=== PATIENT | male | born 1960 | race Caucasian/White ===

== ENCOUNTER → 2017-12-21 08:17 | Outpatient (CLI) | payer BC, SELFPAY ==
[2017-12-23 06:41] LABS: H. pylori Breath Test Negative (Negative)
== END ==
PROVIDERS: Nurse Practitioner Family; PCP Emergency Medicine; Visit Provider Emergency Medicine
DX: R11.0 Nausea (principal)
CPT/HCPCS: 83013

== ENCOUNTER → 2018-01-18 14:10 | Outpatient (POV) | payer BC, SELFPAY | PROVIDERS: Visit Provider Nurse Practitioner Acute Care | DX: Z00.00 Encounter for general adult medical examination without abnormal findings (principal) ==

== ENCOUNTER → 2019-11-30 15:11 | Outpatient (CLI) | payer BC, SELFPAY ==
[2019-11-30 15:41] LABS: Basophils % 0.4 % (0.1-2.0); Eosinophils # 0.1 K/mm3 (0.0-0.4); Eosinophils % 1.7 % (0.1-12.0); Hematocrit 45.9 % (42.0-52.0); Hemoglobin 14.8 g/dL (14.1-18.0); Lymphocytes # 1.5 K/mm3 (0.7-4.5); Lymphocytes % 20.2 % (10-50); Mean Corpuscular HGB Conc 32.2 g/dL (31.8-35.4); Mean Corpuscular Hemoglobin 29.6 pg (27.0-31.2); Mean Corpuscular Volume 91.8 fl (80-94); Mean Platelet Volume 10.2 fl (7.4-10.4); Monocytes # 0.6 K/mm3 (0.1-1.0); Monocytes % 7.8 % (1.7-9.3); Neutrophils # 5.1 K/mm3 (1.8-7.8); Platelet Count 195 K/mm3 (142-424); White Blood Count 7.3 K/mm3 (4.8-10.8)
[2019-11-30 16:40] LABS: Alanine Aminotransferase 25 U/L (12-78); Albumin/Globulin Ratio 1.1 (1.1-1.8); Alkaline Phosphatase 71 U/L (46-116); Anion Gap 16.1 mEq/L (5-15); Aspartate Amino Transferase 18 U/L (15-37); Bilirubin,Total 0.7 mg/dL (0.2-1.0); Blood Urea Nitrogen 16 mg/dL (7-18); Calcium 9.2 mg/dL (8.5-10.1); Carbon Dioxide 26 mmol/L (21.0-32.0); Chloride 104 mmol/L (98-107); Chol/HDL Ratio 5.5 (1-3.5); Cholesterol 209 mg/dL (140-200); Creatinine,Serum 1.02 mg/dL (0.70-1.30); Estimated Glomerular Filt Rate 75 ml/min (>60); Free T4 (Free Thyroxine) 1.13 ng/dl (0.76-1.46); GFR (African American) 91 ML/MIN (>60); Globulin 3.7 gm/dl (1.3-3.2); Glucose 95 mg/dL (74-106); HDL Cholesterol 38 mg/dL (27-67); LDL Cholesterol 133 mg/dL (0-130); Potassium 4.1 mmoL/L (3.5-5.1); Sodium 142 mmol/L (136-145); Thyroid Stimulating Hormone 0.56 uIU/ml (0.358-3.740); Total Protein,Serum 7.7 gm/dL (6.4-8.2); Triglycerides 191 mg/dL (30-200); VLDL Cholesterol 38 mg/dL (0-40)
[2019-12-02 11:27] LABS: PSA, Free 0.08 ng/mL; Prostate Specific Ag 0.7 ng/mL (0.0-4.0); Vitamin D 25 Hydroxy 26.7 ng/mL (30.0-100.0)
[2019-12-02 11:43] LABS: Hep A Ab, IgM Negative (Negative); Hepatitis B Core Antibody IgM Negative (Negative); Hepatitis B Surface Antigen Negative (Negative)
[2019-12-02 16:20] LABS: Hepatitis C Antibody 0.1 s/co ratio (0.0-0.9)
== END ==
PROVIDERS: Visit Provider Emergency Medicine
DX: K21.9 Gastro-esophageal reflux disease without esophagitis (principal); I10 Essential (primary) hypertension; E55.9 Vitamin D deficiency, unspecified
CPT/HCPCS: 80053; 80061; 80074; 82652; 84153; 84154; 84439; 84443; 85025

== ENCOUNTER → 2021-06-18 15:21 | Outpatient (CLI) | payer BC, SELFPAY ==
[2021-06-18 16:02] LABS: Basophils % 0.4 % (0.1-2.0); Eosinophils # 0.2 K/mm3 (0.0-0.4); Eosinophils % 2.2 % (0.1-12.0); Hematocrit 44.7 % (42.0-52.0); Hemoglobin 14.8 g/dL (14.1-18.0); Lymphocytes # 1.8 K/mm3 (0.7-4.5); Lymphocytes % 19.6 % (10-50); Mean Corpuscular HGB Conc 33.1 g/dL (31.8-35.4); Mean Corpuscular Hemoglobin 29.8 pg (27.0-31.2); Mean Corpuscular Volume 90.1 fl (80-94); Mean Platelet Volume 11.4 fl (7.4-10.4); Monocytes # 0.5 K/mm3 (0.1-1.0); Monocytes % 5.3 % (1.7-9.3); Neutrophils # 6.5 K/mm3 (1.8-7.8); Neutrophils % 72.4 % (37.0-80.0); Platelet Count 211 K/mm3 (142-424); Red Blood Count 4.96 M/mm3 (4.60-6.20); Red Cell Distribution Width 14.8 % (11.5-17.5)
[2021-06-18 16:12] LABS: Alanine Aminotransferase 26 U/L (12-78); Albumin Level 4.3 g/dl (3.5-5.0); Albumin/Globulin Ratio 1.4 (1.1-1.8); Alkaline Phosphatase 84 U/L (38-126); Anion Gap 15.2 mEq/L (5-15); Aspartate Amino Transferase 27 U/L (17-59); Bilirubin,Total 0.5 mg/dl (0.2-1.3); Blood Urea Nitrogen 18 mg/dl (9-20); Carbon Dioxide 21 mmol/L (22.0-30.0); Chloride 108 mmol/L (98-107); Chol/HDL Ratio 3.1 (1-3.5); Cholesterol 140 mg/dl (140-200); Estimated Glomerular Filt Rate 86 ml/min (>60); GFR (African American) 105 ML/MIN (>60); Glucose 123 mg/dl (74-100); HDL Cholesterol 45 mg/dl (40-60); Potassium 4.2 mmoL/L (3.5-5.1); Sodium 140 mmol/L (136-145); Total Protein,Serum 7.3 g/dl (6.3-8.2); Triglycerides 197 mg/dl (30-150); Uric Acid 5.8 mg/dl (3.5-8.5); VLDL Cholesterol 39 mg/dL (0-40)
[2021-06-18 16:23] LABS: Direct LDL Cholesterol 54.66 mg/dL (100-129)
[2021-06-18 16:29] LABS: Free T4 (Free Thyroxine) 1.38 ng/dl (0.78-2.19)
[2021-06-18 16:30] LABS: 25-OH Vitamin D, Total 29.8 ng/mL (30-100)
[2021-06-18 16:43] LABS: Prostate Specific Ag Screen 0.8 ng/ml (0.0-4.0); Thyroid Stimulating Hormone 0.79 uIU/mL (0.465-4.68)
== END ==
PROVIDERS: Visit Provider Emergency Medicine
DX: E78.5 Hyperlipidemia, unspecified (principal); E55.9 Vitamin D deficiency, unspecified; M10.9 Gout, unspecified; E66.9 Obesity, unspecified; Z68.34 Body mass index [BMI] 34.0-34.9, adult
CPT/HCPCS: 80053; 80061; 82306; 84439; 84443; 84550; 85025; G0103

== ENCOUNTER → 2021-07-01 07:47 | Outpatient (CLI) | payer BC, SELFPAY ==
--- NOTE | 2021-07-01 07:53 | US_ITS ---
PROCEDURE: US GALLBLADDER CLINICAL INDICATION: abdominal pain COMPARISON: No exams were available for comparison FINDINGS: Pancreas: Unremarkable Liver: Small hyperechoic focus is present in the left lobe of the liver at 1 cm and could be due to small hemangioma. There is appropriate direction of blood flow within a non dilated portal vein. Right kidney: Unremarkable appearing. No hydronephrosis. Gallbladder: No stones are evident. There is no gallbladder wall thickening. Common duct is normal in diameter. IMPRESSION: Unremarkable gallbladder ultrasound. Small hyperechoic focus of the liver which may be due to small hemangioma Dictated by: Fernando Miranda MD 07/01/2021 11:47 Fernando Miranda MD in [place] 07/01/2021 11:47
== END ==
PROVIDERS: PCP Emergency Medicine; Visit Provider Emergency Medicine
DX: R10.9 Unspecified abdominal pain (principal)
CPT/HCPCS: 76705

== ENCOUNTER → 2021-07-26 06:53 | Outpatient (CLI) | payer BC, SELFPAY ==
--- NOTE | 2021-07-26 06:59 | NM_ITS ---
PROCEDURE: NM HEPATOBILIARY W PHARM CLINICAL INDICATION: Abdominal Pain COMPARISON: No exams were available for comparison TECHNIQUE: DOSE: 4.88 mCi technetium Choletec Fatty meal with Ensure FINDINGS: Homogeneous activity is present within the hepatic parenchyma. Activity is present in the gallbladder by 10 minutes. Activity is present in the small bowel by 45 minutes. The gallbladder ejection fraction is calculated to be 48 percent. No pain reported with fatty meal. IMPRESSION: Unremarkable hepatobiliary scan with normal gallbladder ejection fraction Dictated by: Fernando Miranda MD 07/26/2021 12:54 Fernando Miranda MD in [facility] 07/26/2021 12:54
== END ==
PROVIDERS: PCP Emergency Medicine; Visit Provider Emergency Medicine
DX: R10.9 Unspecified abdominal pain (principal)
CPT/HCPCS: 78227; A9537

== ENCOUNTER → 2022-08-27 13:52 | Outpatient (CLI) | payer BC, SELFPAY ==
[2022-08-27 16:53] LABS: Coronavirus 19, PCR Not Detected (NotDetected); Influenza A, PCR Not Detected (NotDetected)
[2022-08-27 23:34] LABS: Influenza B, PCR Detected (NotDetected)
== END ==
PROVIDERS: PCP Emergency Medicine; Visit Provider Emergency Medicine
DX: J02.9 Acute pharyngitis, unspecified (principal); J10.1 Influenza due to other identified influenza virus with other respiratory manifestations
CPT/HCPCS: C9803; U0003; U0005

== ENCOUNTER 2025-01-03 21:28 | Outpatient (CLI) | payer BC, SELFPAY ==
[2025-01-03 22:06] LABS: Basophils % 0.5 % (0.1-2.0); Eosinophils # 0.2 K/mm3 (0.0-0.4); Eosinophils % 2.1 % (0.1-12.0); Hematocrit 45.5 % (42.0-52.0); Hemoglobin 14.5 g/dL (14.1-18.0); Lymphocytes # 1.6 K/mm3 (0.7-4.5); Lymphocytes % 19.9 % (10-50); Mean Corpuscular HGB Conc 31.9 g/dL (31.8-35.4); Mean Corpuscular Hemoglobin 29.2 pg (27.0-31.2); Mean Corpuscular Volume 91.5 fl (80-94); Mean Platelet Volume 11.7 fl (7.4-10.4); Monocytes # 0.5 K/mm3 (0.1-1.0); Monocytes % 6.6 % (1.7-9.3); Neutrophils # 5.7 K/mm3 (1.8-7.8); Neutrophils % 70.6 % (37.0-80.0); Platelet Count 239 K/mm3 (142-424); Red Blood Count 4.97 M/mm3 (4.60-6.20); Red Cell Distribution Width 14.8 % (11.5-17.5)
[2025-01-03 22:57] LABS: Alanine Aminotransferase 26 U/L (12-78); Albumin Level 4.8 g/dl (3.5-5.0); Albumin/Globulin Ratio 1.7 (1.1-1.8); Alkaline Phosphatase 83 U/L (38-126); Anion Gap 15.4 mEq/L (5-15); Aspartate Amino Transferase 26 U/L (17-59); Bilirubin,Total 0.7 mg/dl (0.2-1.3); Blood Urea Nitrogen 14 mg/dl (9-20); Calcium 9.7 mg/dl (8.4-10.2); Carbon Dioxide 24 mmol/L (22.0-30.0); Chloride 105 mmol/L (98-107); Chol/HDL Ratio 2.8 (1-3.5); Cholesterol 124 mg/dl (140-200); Estimated Glomerular Filt Rate 98 ml/min (>60); GFR (African American) 118 ML/MIN (>60); Globulin 2.9 g/dL (1.3-3.2); Glucose 92 mg/dl (74-100); HDL Cholesterol 45 mg/dl (40-60); Potassium 4.4 mmoL/L (3.5-5.1); Sodium 140 mmol/L (136-145); Total Protein,Serum 7.7 g/dl (6.3-8.2); Triglycerides 163 mg/dl (30-150); VLDL Cholesterol 33 mg/dL (0-40)
[2025-01-03 23:08] LABS: Direct LDL Cholesterol 42.82 mg/dL (100-129)
[2025-01-03 23:13] LABS: 25-OH Vitamin D, Total 29.3 ng/mL (30-100)
[2025-01-03 23:28] LABS: Thyroid Stimulating Hormone 0.99 uIU/mL (0.465-4.68)
== END 2025-01-03 23:59 | disposition home or self-care (01) ==
LOC: LAB 21:29
PROVIDERS: PCP Nurse Practitioner Family; Visit Provider Nurse Practitioner Family
DX: E55.9 Vitamin D deficiency, unspecified (principal); M10.9 Gout, unspecified; E78.5 Hyperlipidemia, unspecified; K21.9 Gastro-esophageal reflux disease without esophagitis; E66.811 Obesity, class 1; Z68.33 Body mass index [BMI] 33.0-33.9, adult
CPT/HCPCS: 80053; 80061; 82306; 84443; 85025; G0103

== ENCOUNTER 2025-01-13 12:38 | Outpatient (CLI) | payer BC, SELFPAY ==
--- NOTE | 2025-01-13 12:42 | CA_ITS ---
APPROVED REPORT EXAM: Comprehensive 2D, Doppler, and color-flow Echocardiogram Immigration Coordinator: ELAN Moore, RVS Ht: 5 ft 9 in Wt: 118lbs BSA: 1.65 BP: 118/76 mmHg Indications: NICHOLS, HLD, Murmur 2D Dimensions Left Atrium 4.07 cm LA Volume 60.00 mL LA Volume Index 35.50 mL/m2 (M/F) 16-34 M-Mode Dimensions RVDd 2.10 cm (0.9-2.6) LA Diam 4.42 cm (1.9-4.0) LVDd 4.84 cm (3.5-5.7) LVDs 2.75 cm (3.5-5.7) IVSd 1.26 cm (0.6-1.1) PWd 1.07 cm (0.6-1.1) EF (Teich) 72.60% EPSs 0.27 cm FS 41.70% EDV (Teich) 103.40 mL TAPSE 2.34 (<1.7) ESV (Teich) 28.30 mL LV Diastology MED A' 14.30 cm/s LAT A' 12.70 cm/s Aortic Valve GEREMIAS Index 1.82 cm2/m2 AoV Peak Amadeo. 107.0 (50-130 cm/s) AO Peak GR. 4.60 mmHg AO Mean GR. 2.30 (<5 mmHg) AO VTI 20.6 (18-25 cm) GEREMIAS (VTI) 3.08 (2.5-4.5 cm2) Pulmonary Valve PV Peak Velocity 96.0 (50-150 cm/s) Left Ventricle The left ventricle is normal size. The left ventricular systolic function is normal. The left ventricular ejection fraction is within the normal range. There is normal left ventricular wall thickness. There is normal LV segmental wall motion. The left ventricular diastolic function is normal. LVEF is 55%. Right Ventricle The right ventricle is normal size. The right ventricular systolic function is normal. Atria The left atrium size is normal. The right atrium size is normal. There is no Doppler evidence of interatrial shunt. Aortic Valve The aortic valve opens well. There is no aortic valvular stenosis. Aorta regurgitation. Mitral Valve The mitral valve is normal in structure. No evidence of mitral valve stenosis. Trace mitral regurgitation. Tricuspid Valve Tricuspid valve is grossly normal in structure and function. Trace tricuspid regurgitation. There is insufficient TR jet to estimate RVSP. Pulmonic Valve The pulmonary valve is normal in structure. Trace pulmonic regurgitation. Great Vessels The aortic root is normal in size. IVC is normal in size and collapses >50% with inspiration. Pericardium There is no pericardial effusion. Other Information Study Quality: Fair Conclusion Normal biventricular systolic function. No significant valvular stenosis or regurgitation. Electronically signed by : Sunitha Mack MD 01/22/2025 21:35:38
== END 2025-01-13 23:59 | disposition home or self-care (01) ==
LOC: RT 12:39
PROVIDERS: PCP Nurse Practitioner Family; Visit Provider Nurse Practitioner Family
DX: R06.09 Other forms of dyspnea (principal); R01.1 Cardiac murmur, unspecified
CPT/HCPCS: 93306

== ENCOUNTER 2025-05-08 06:01 | Day surgery (SDC) | payer BC, SELFPAY ==
[2025-05-02 11:44] VITALS: BMI 33.4
[2025-05-08 06:17] VITALS: BP 130/91; PULSE 89; RESP 16; TEMP 36.2; O2SAT 100
[2025-05-08] MEDS: LACTATED RINGERS 1000ML 1,000 ML 50 ML IV (06:23)
--- NOTE | 2025-05-08 07:12 | EXP.ANES.CKL ---
[facility] Disclaimer: The information contained in this section may have been updated after the patient was seen, as this information can be updated by other users. Medical History Colon cancer screening Excessive cerumen in right ear canal Hearing loss Arthritis Surgical History History of hip replacement Family History Father Cancer Social History Smoking Status: Never smoker alcohol intake: never substance use type: denies use current occupational status: employed Travel in the last 8 weeks?: None household members: family housing: house Have you lived/traveled outside US in past 30 days?: No Contact w/someone who lives/traveled outside US past 30 days?: No Exposure to someone with infectious disease in past 14 days?: No Do you have a fever (greater than 100.4 F or 38 C)?: No Have you tested positive for COVID-19?: No Exposed to someone with COVID-19 in past 14 days?: No Do you have a sore throat?: No Do you have a cough?: No Do you have any weakness?: No Do you have any diarrhea?: No Are you experiencing any unusual bleeding?: No Do you have any muscle aches/pain?: No Do you have any abdominal pain?: No Are you experiencing loss of taste or smell?: No [facility] Anesthesia Checklist Patient Identification Patient Identification: Arm Band and Verbal (Name & ) Structural Data Admitted From: Home Planned Operative Procedure/s: EGD Colonscopy Consent for Planned Operative Procedure(s) Verified: Yes Verified Documents: Surgical Consent and History and Physical NPO Status Verified Time NPO: 00:00 Additional verifications Patient : No Anesthesia Reactions: No Airway Assessment Mallampati Score:: Class III Dentition: Good Dentition Neurological Assessment Level of Consciousness: Awake, Alert and Appropriate Hx Seizures: No Anesthesia Plan Anesthesia Risk discussed: Yes Anesthesia Plan: Verified ASA Class: II Anesthesia Type: MAC
--- NOTE | 2025-05-08 07:28 | EXP.HP ---
History of Present Illness *Admission Date: 05/08/25 *Reason for visit:: Screening for colon cancer *History of present illness: Mr. Phillips is a 64-year-old gentleman who is here for screening colonoscopy. His last colonoscopy was over 10 years ago ([facility]) and he had no polyps. The examination is deemed medically necessary for screening colonoscopy. The patient has been seen, interviewed and examined prior to the procedure by both myself and the anesthesia provider. [facility] Disclaimer: The information contained in this section may have been updated after the patient was seen, as this information can be updated by other users. Medical History Colon cancer screening Excessive cerumen in right ear canal Hearing loss Arthritis Surgical History History of hip replacement Family History Father Cancer Social History Smoking Status: Never smoker alcohol intake: never substance use type: denies use current occupational status: employed Travel in the last 8 weeks?: None household members: family housing: house Have you lived/traveled outside US in past 30 days?: No Contact w/someone who lives/traveled outside US past 30 days?: No Exposure to someone with infectious disease in past 14 days?: No Do you have a fever (greater than 100.4 F or 38 C)?: No Have you tested positive for COVID-19?: No Exposed to someone with COVID-19 in past 14 days?: No Do you have a sore throat?: No Do you have a cough?: No Do you have any weakness?: No Do you have any diarrhea?: No Are you experiencing any unusual bleeding?: No Do you have any muscle aches/pain?: No Do you have any abdominal pain?: No Are you experiencing loss of taste or smell?: No Other Medical History Have you received the Flu Vaccine for this season: No Have you received the Pneumonia Vaccine: No Review of Systems Review of Systems Review of systems (narrative): Negative *Cardiovascular Comments: Negative *Gastrointestinal Comments: Negative *Genitourinary Comments: Negative *Musculoskeletal Comments: Negative *Neurologic Comments: Negative Meds Home Medications and Allergies Home Medications ?Medication ?Instructions ?Recorded ?Confirmed ?Type allopurinol 300 mg tablet 300 mg PO DAILY 05/02/25 05/08/25 History atorvastatin 10 mg tablet 10 mg PO DAILY 05/02/25 05/08/25 History fluticasone propionate 50 2 spray intranasal DAILY 05/02/25 05/08/25 History mcg/actuation nasal spray,suspension pantoprazole 40 mg tablet,delayed 40 mg PO DAILY 05/02/25 05/08/25 History release promethazine 12.5 mg tablet 12.5 mg PO NEEDED PRN Nausea 05/02/25 05/08/25 History And Vomiting New Prescriptions to Start Prescriptions: Allergies Allergy/AdvReac Type Severity Reaction Status Date / Time No Known Allergies Allergy Verified 05/08/25 06:16 Exam Data for Last 24 hours Vital signs and Labs for Last 24 Hours: Temp Pulse Resp BP Pulse Ox O2 Del Method 97.2 F L 89 16 130/91 H 100 Room Air 05/08/25 06:17 05/08/25 06:17 05/08/25 06:17 05/08/25 06:17 05/08/25 06:17 05/08/25 06:17 *Routine HEENT Exam Head: Present normocephalic Eye: Present EOMI and PERRL ENT: Present mucous membranes moist *Routine Neck Exam Neck: Present supple *Routine Respiratory Exam Respiratory: Present CTA bilaterally *Routine Cardiovascular Exam Cardiovascular: Present RRR *Routine Abdominal Exam Abdominal: Present soft and normoactive bowel sounds; Absent tenderness *Routine Rectal Exam Rectal:: deferred *Routine Genitalia Exam Genitalia:: deferred *Routine Extremities Exam Extremities: Absent cyanosis, clubbing or edema *Routine Skin Exam Skin: Present warm; Absent rash *Routine Neurological Exam Neurological: Present alert and oriented X3 Assessment and Plan *Assessment and plan (1) Screening for colon cancer: Status: Acute Category: Medical Code(s): Z12.11 - Encounter for screening for malignant neoplasm of colon Plan A/P: 1. Screening for colon cancer is the preprocedural diagnosis. The patient will be anesthetized/sedated using MAC sedation. The patient has been seen and examined. Cardiac and lung assessment prior to the examination is stable. Proceed with planned screening colonoscopy.
--- NOTE | 2025-05-08 07:30 | P.PCN_ITS ---
[facility] Procedure Note Date: 05/08/25 Time: 07:42 Procedure Note:: Upper Endoscopy Procedure Report: Esophagogastroduodenoscopy with cold biopsies Endoscopost: Heath Junior II, MD Referring Physician: May 08, 2025 Date of Procedure: NISHANT Cortez Equipment: Olympus GIF 190 standard upper endoscope Sedation: MAC sedation Indications: Mr. Phillips is a 64-year-old gentleman who is here for diagnostic EGD and screening colonoscopy. He has been having some reflux and dyspepsia. He has been on pantoprazole for 3 to 4 years and takes 40 mg daily. He has been having increased heartburn, bloating and reflux and this can awaken him at nighttime especially when he lies down. He reports some epigastric discomfort and reflux. He does take Phenergan some for the nausea. He reports some early satiety. He has had no dysphagia. He has gained 30 pounds over the last 10 years and thinks it may be a contributing factor. He also drinks 4-5 beers 2 or 3 days a week. He was taking ibuprofen about once a week. He has had some bowel irregularity and does get some postprandial bowel urgency. He does feel as if belching could relieve his symptoms and does get a lot of bloating and belching. He did have an EGD with me in [place] 5 to 10 years ago. His last colonoscopy was more than 10 years ago. He reports no melena, hematochezia or bright red blood per rectum. He reports no unintentional weight loss or family history of colon cancer. Procedure: Prior to the procedure, a history and physical exam was performed, and patient's medications and allergies were reviewed. The risks, benefits and alternatives of the sedation and procedure were discussed with the patient. All questions were answered and informed consent was obtained. The patient was brought to the procedure room. Patient identification and proposed procedure were verified by the physician and the nurse. The patient was placed in a left lateral decubitus position and the scope was passed under direct vision. Throughout the procedure, the patient's blood pressure, pulse, and oxygen saturations were monitored continuously. The upper GI endoscopy was accomplished without difficulty. The patient tolerated the procedure well. Findings: The scope was passed directly into the upper esophagus and advanced to the fourth portion of duodenum and proximal jejunum. A cold biopsy was taken from the proximal jejunum for the disaccharidase assay. The proximal jejunum, post bulbar duodenum and duodenal bulb were normal with normal mucosa and conniventes. The scope was withdrawn through a normal duodenal bulb and pylorus into the stomach. There was some mild linear reactive gastropathy of the antrum. Cold biopsies were obtained. The body and fundus of the stomach were normal. Upon retroflexion, there was no hiatal hernia. The scope was then withdrawn into the esophagus. There was no evidence of reflux esophagitis or Thomas's. There was no mucosal abnormalities of the esophagus. The remainder of the esophageal mucosa was normal. Impression: 1. Mild antral linear reactive gastropathy Plan: I will follow-up the biopsies. Most of the patient's symptoms of functional dyspepsia and functional GERD are related to and driven by lower intestinal gas pressure gradients/high gas pressure buildup resulting in backflow of bile and peptic fluid from the duodenum into the stomach (duodenal reflux). This gas production (carbon dioxide, hydrogen, methane, etc.) from the lower intestinal tract is the byproduct of colonic bacterial fermentation. This colonic fermentation occurs when there is more carbohydrate (dietary starches, sugars and high residue plant fiber) substrate that does not get digested (in the middle or small intestine) or occurs when there is colonic fecal buildup and colonic bacterial overgrowth. This indeed leads to bloating and the gas pressure buildup with gas pressure gradients that do drive backflow and dyspepsia. I will proceed with screening colonoscopy.
--- NOTE | 2025-05-08 07:44 | P.PCN_ITS ---
[facility] Procedure Note Date: 05/08/25 Time: 07:59 Procedure Note:: Colonoscopy Procedure Report: Colonoscopy with cold snare polypectomy Endoscopist: Heath Junior II, MD Referring physician: NISHANT Cortez Date of Procedure: May 08, 2025 Equipment: Olympus 190 variable stiffness pediatric colonoscope Sedation: MAC sedation Indication: Mr. Phillips is a 64-year-old gentleman who is here for diagnostic EGD and screening colonoscopy. He has been having some reflux and dyspepsia. He has been on pantoprazole for 3 to 4 years and takes 40 mg daily. He has been having increased heartburn, bloating and reflux and this can awaken him at nighttime especially when he lies down. He reports some epigastric discomfort and reflux. He does take Phenergan some for the nausea. He reports some early satiety. He has had no dysphagia. He has gained 30 pounds over the last 10 years and thinks it may be a contributing factor. He also drinks 4-5 beers 2 or 3 days a week. He was taking ibuprofen about once a week. He has had some bowel irregularity and does get some postprandial bowel urgency. He does feel as if belching could relieve his symptoms and does get a lot of bloating and belching. He did have an EGD with me in [place] 5 to 10 years ago. His last colonoscopy was more than 10 years ago. He reports no melena, hematochezia or bright red blood per rectum. He reports no unintentional weight loss or family history of colon cancer. Procedure: Prior to the procedure, a history and physical exam was performed, and patient's medications and allergies were reviewed. The risks, benefits and alternatives of the sedation and procedure were discussed with the patient. All questions were answered and informed consent was obtained. The patient was brought to the procedure room. Patient identification and proposed procedure were verified by the physician and the nurse. The patient was placed in a left lateral decubitus position and the scope was passed under direct vision. Throughout the procedure, the patient's blood pressure, pulse, and oxygen saturations were monitored continuously. The colonoscopy was accomplished without difficulty. The patient tolerated the procedure well. Findings: On digital rectal examination there was normal rectal tone. There were no external hemorrhoids. The prostate was 2+, smooth, soft, symmetric without nodules. The colonoscope was introduced through the anal canal to the rectum and advanced to the cecum. The ileocecal valve and appendiceal orifice were identified. The scope was advanced a short distance into the ileum which appeared grossly normal. The scope was then withdrawn into the colon. There wer e 4 polyps (descending x 2 (3 and 5 mm) and sigmoid x 2 (4 and 4 mm)). These were all removed via cold snare polypectomy. The remaining cecum, ascending, transverse, descending, sigmoid and rectum were grossly normal. There were no mucosal abnormalities identified. Upon retroflexion within the rectum there were grade 2 internal hemorrhoids. The preparation was excellent throughout with [place] Preparation Score of 9. The cecal time was 13 minutes. Impression: 1. Diminutive colonic polyps x 4 2. Grade 2 internal hemorrhoids Plan: I will follow-up the polyp histology and recommend repeat surveillance colonoscopy again in 5 years based upon the pathology. I would encourage a fiber bowel regimen on a long-term daily maintenance basis.
[2025-05-08 08:03] VITALS: BP 122/79; PULSE 75; RESP 20; TEMP 36.4; O2SAT 93
[2025-05-08 08:13] VITALS: BP 120/71; PULSE 61; RESP 19; TEMP 36.7; O2SAT 96
[2025-05-08 08:36] VITALS: BP 136/76; PULSE 68; RESP 17; TEMP 36.3; O2SAT 97
[2025-05-11 15:20] LABS: Interpretation Notes (.); Lactase 1.77 (>/= 14.0); Maltase 335.42 (>/= 110.0); Palatinase 20.03 (>/= 8.5); Reference Notes (.); Sucrase 93.47 (>/= 25.0)
== END 2025-05-08 08:39 | disposition home or self-care (01) ==
PROVIDERS: PCP Nurse Practitioner Family; Visit Provider Internal Medicine Gastroenterology
PROC: 0DJ08ZZ Inspection of Upper Intestinal Tract, Via Natural or Artificial Opening Endoscopic (ICD-10-PCS; CPT 45378; principal; 2025-05-08 07:30)
DX: Z12.11 Encounter for screening for malignant neoplasm of colon (principal); K31.89 Other diseases of stomach and duodenum; K21.9 Gastro-esophageal reflux disease without esophagitis; K64.1 Second degree hemorrhoids; K29.50 Unspecified chronic gastritis without bleeding; D12.4 Benign neoplasm of descending colon; D12.5 Benign neoplasm of sigmoid colon; H91.90 Unspecified hearing loss, unspecified ear; Z79.899 Other long term (current) drug therapy
CPT/HCPCS: 43239; 45385; 82657; J2003; J2704; J7120